=== PATIENT | male | born 1955 | race Caucasian/White ===

== ENCOUNTER 2020-04-28 17:24 | Emergency (ER) | payer MEDICARE, BC, MEDICAID ==
[~2020-04-28] VITALS: Ht 188 cm; Wt 125.0 kg
[~2020-04-28 17:24] MED LIST: ATEN25TA PO; HYDR-3972 PO; METF500T PO; OMEP40CA13 PO; TADA5TAB2 PO
[2020-04-28] MEDS ORDERED: HYDROmorphone 1 mg/ml syringe IV ONE ×2 (20:50→20:55)
[2020-04-28] MEDS ORDERED: gabapentin 400mg capsule PO SCH (20:50)
[2020-04-28] MEDS ORDERED: HYDROmorphone 1 mg/ml syringe IM ONE ×2 (21:05→21:10)
[2020-04-28] MEDS ORDERED: GABA-534 PO (21:57)
[2020-04-28 22:06] VITALS: BP 131/86
== END 2020-04-28 22:07 | disposition home or self-care (01) ==
LOC: ER 17:25
DX: G89.18 Other acute postprocedural pain (principal); I25.10 Atherosclerotic heart disease of native coronary artery without angina pectoris; I10 Essential (primary) hypertension; J44.9 Chronic obstructive pulmonary disease, unspecified; K21.9 Gastro-esophageal reflux disease without esophagitis; E11.9 Type 2 diabetes mellitus without complications; G89.29 Other chronic pain; Z98.890 Other specified postprocedural states; Z60.2 Problems related to living alone; Z88.5 Allergy status to narcotic agent; Z79.899 Other long term (current) drug therapy
CPT/HCPCS: 96372; 99283; J1170

== ENCOUNTER 2021-01-22 09:22 | Outpatient (CLI) | payer MEDICARE, BC, MEDICAID ==
[~2021-01-22 09:22] MED LIST changes: +GABA-534 PO; -OMEP40CA13 PO; +OMEP40CA21 PO
[2021-01-22] MEDS ORDERED: iohexol 300mg/ml 100ml inj. ONE (10:19)
== END 2021-01-22 23:59 | disposition home or self-care (01) ==
LOC: 64 CT 09:22
PROVIDERS: ATTEND Nurse Practitioner Adult Health
DX: R51.9 Headache, unspecified (principal)
CPT/HCPCS: 70470; Q9967

== ENCOUNTER 2021-08-20 09:46 | Outpatient (CLI) | payer MEDICARE, BC, MEDICAID | END 2021-08-20 23:59 | disposition home or self-care (01) | LOC: RAD 09:46 | PROVIDERS: ATTEND Nurse Practitioner Adult Health | DX: E04.2 Nontoxic multinodular goiter (principal) | CPT/HCPCS: 76536 ==

== ENCOUNTER 2022-01-20 01:18 | Emergency (ER) | payer MEDICARE, BC ==
[~2022-01-20] VITALS: Ht 188 cm; Wt 123.6 kg
[2022-01-20 03:21] LABS: BASOPHILS # (AUTO) 0.1 X10'3 (0-0.2); EOSINOPHILS # (AUTO) 0.1 X10'3 (0-0.9); EOSINOPHILS % (AUTO) 0.7 % (0-6); HEMATOCRIT 46.2 % (42.0-52.0); HEMOGLOBIN 15.9 g/dl (14.0-17.9); LYMPHOCYTES # (AUTO) 2.1 X10'3 (1.1-4.8); LYMPHOCYTES % (AUTO) 22.2 % (21-51); MEAN CORPUSCULAR HEMOGLOBIN 31.2 PG (27.0-31.0); MEAN CORPUSCULAR HGB CONC 34.3 g/dL (33.0-36.5); MEAN CORPUSCULAR VOLUME 90.8 FL (78-98); MEAN PLATELET VOLUME 7.9 FL (7.4-10.4); MONOCYTES # (AUTO) 1.1 X10'3 (0-0.9); MONOCYTES % (AUTO) 12.2 % (2-12); NEUTROPHILS # (AUTO) 5.9 X10'3 (1.8-7.7); NEUTROPHILS % (AUTO) 63.9 % (42-75); PLATELET COUNT 218 X10'3 (140-440); RED BLOOD COUNT 5.09 X10'6 (4.70-6.10); RED CELL DISTRIBUTION WIDTH 13.4 % (11.5-14.5); WHITE BLOOD COUNT 9.3 X10'3 (4.5-11.0)
[2022-01-20 03:54] LABS: ALANINE AMINOTRANSFERASE 35 U/L (12-78); ALBUMIN 3.7 G/DL (3.4-5.0); ALBUMIN/GLOBULIN RATIO 1.1 (1.1-1.5); ALKALINE PHOSPHATASE 83 IU/L (46-116); ANION GAP 10 (8-16); ASPARTATE AMINO TRANSFERASE 21 U/L (10-37); BILIRUBIN,TOTAL 0.4 MG/DL (0.1-1.0); BLOOD UREA NITROGEN 14 MG/DL (7-18); BUN/CREATININE RATIO 13.7 (5.4-32.0); CALCIUM 8.8 MG/DL (8.5-10.1); CHLORIDE 105 MMOL/L (99-107); CREATININE 1.02 MG/DL (0.60-1.10); GLUCOSE 148 MG/DL (70-104); POTASSIUM 4.3 MMOL/L (3.5-5.1); SODIUM 141 MMOL/L (135-145); TOTAL CARBON DIOXIDE 25.8 MMOL/L (24-32); TOTAL PROTEIN 7.1 G/DL (6.4-8.2); eGFR 73 ML/MIN
[2022-01-20] MEDS ORDERED: meclizine 12.5mg tablet PO ONE (05:30)
[2022-01-20] MEDS ORDERED: MECL-159 PO (05:41)
[2022-01-20 06:03] VITALS: BP 130/81
== END 2022-01-20 06:08 | disposition home or self-care (01) ==
LOC: ER 01:19
DX: R42 Dizziness and giddiness (principal); R00.2 Palpitations; R07.89 Other chest pain; I25.10 Atherosclerotic heart disease of native coronary artery without angina pectoris; I10 Essential (primary) hypertension; J43.9 Emphysema, unspecified; K21.9 Gastro-esophageal reflux disease without esophagitis; E11.9 Type 2 diabetes mellitus without complications; G89.29 Other chronic pain; Z60.2 Problems related to living alone; Z88.5 Allergy status to narcotic agent; Z88.6 Allergy status to analgesic agent; Z79.899 Other long term (current) drug therapy
CPT/HCPCS: 36415; 71045; 80053; 83880; 84484; 85025; 93005; 99285; J8597

== ENCOUNTER 2022-06-05 06:44 | Day surgery (SDC) | payer MEDICARE, BC ==
[2022-06-04 14:02] LABS: ALBUMIN 3.8 G/DL (3.4-5.0); ANION GAP 8 (8-16); BLOOD UREA NITROGEN 16 MG/DL (7-18); CALCIUM 9.1 MG/DL (8.5-10.1); CHLORIDE 103 MMOL/L (99-107); CREATININE 1.07 MG/DL (0.60-1.10); GLUCOSE 170 MG/DL (70-104); POTASSIUM 4.8 MMOL/L (3.5-5.1); SODIUM 141 MMOL/L (135-145); TOTAL CARBON DIOXIDE 30.3 MMOL/L (24-32); eGFR 69 ML/MIN
[2022-06-04 14:20] LABS: BASOPHILS # (AUTO) 0.1 X10'3 (0-0.2); BASOPHILS % (AUTO) 0.9 % (0-1); EOSINOPHILS # (AUTO) 0.1 X10'3 (0-0.9); EOSINOPHILS % (AUTO) 1.6 % (0-6); HEMATOCRIT 45.7 % (42.0-52.0); HEMOGLOBIN 15.5 g/dl (14.0-17.9); LYMPHOCYTES # (AUTO) 1.8 X10'3 (1.1-4.8); LYMPHOCYTES % (AUTO) 20.5 % (21-51); MEAN CORPUSCULAR HEMOGLOBIN 31.2 PG (27.0-31.0); MEAN CORPUSCULAR HGB CONC 33.9 g/dL (33.0-36.5); MEAN PLATELET VOLUME 7.4 FL (7.4-10.4); MONOCYTES # (AUTO) 0.8 X10'3 (0-0.9); MONOCYTES % (AUTO) 9.4 % (2-12); NEUTROPHILS # (AUTO) 5.8 X10'3 (1.8-7.7); NEUTROPHILS % (AUTO) 67.6 % (42-75); PLATELET COUNT 238 X10'3 (140-440); RED BLOOD COUNT 4.97 X10'6 (4.70-6.10); RED CELL DISTRIBUTION WIDTH 13.1 % (11.5-14.5); WHITE BLOOD COUNT 8.6 X10'3 (4.5-11.0)
[~2022-06-05] VITALS: Ht 188 cm; Wt 124.9 kg
[2022-06-05] VITALS (13 sets, daily range): BP systolic 122–159; BP diastolic 68–92
[~2022-06-05 06:44] MED LIST changes: -ATEN25TA PO; +ATEN50TA90 PO; -GABA-534 PO; -OMEP40CA21 PO; -TADA5TAB2 PO
[2022-06-05] MEDS ORDERED: METO25TA6 PO (07:21)
[2022-06-05] MEDS ORDERED: LISI5TAB22 PO (07:26)
[2022-06-05] MEDS ORDERED: METF-438 PO (07:27)
[2022-06-05] MEDS ORDERED: TADA5TAB13 PO (07:29)
[2022-06-05] MEDS ORDERED: TIZA-189 PO (07:32)
[2022-06-05] MEDS ORDERED: LORA10CA PO (07:32)
[2022-06-05] MEDS ORDERED: normal saline 1,000 ML IV SCH (07:35)
[2022-06-05] MEDS ORDERED: LORazepam 0.5 MG tablet PO PRN (07:35)
[2022-06-05] MEDS ORDERED: diphenhydrAMINE 25mg capsule PO PRN (07:35)
[2022-06-05] MEDS ORDERED: heparin 1,000unit/ml 10ml vial 10 ML ONE (07:36)
[2022-06-05] MEDS ORDERED: LIDOcaine 1% (10mg/ml) 2ml vial ONE (07:36)
[2022-06-05] MEDS ORDERED: fentaNYL/PF 50MCG/1 ML 2ML syringe ONE (07:36)
[2022-06-05] MEDS ORDERED: verapamil 2.5 mg/ml inj IV ONE (07:36)
[2022-06-05] MEDS ORDERED: nitroGLYCERIN-Tridil 50MG/D5W 250 ML IV ONE (07:36)
[2022-06-05] MEDS ORDERED: midazolam 1 mg/ML 2ml injection ONE (07:36)
[2022-06-05] MEDS ORDERED: iohexol 350MG/ML 100ml bottle IV ONE (07:36)
[2022-06-05] MEDS ORDERED: LIDOcaine 1% 30ml preserv. free vial ONE (08:29)
[2022-06-05] MEDS ORDERED: iohexol 350 MG/ML 50ML vial IV ONE (08:53)
[2022-06-05] MEDS ORDERED: normal saline 1000ml 1,000 ML IV SCH (09:55)
[2022-06-05] MEDS ORDERED: non-formulary drug (Tadalafil 1 TAB) PO SCH (12:05)
[2022-06-05] MEDS ORDERED: HYDROcodone/acetaminophen 10/325mg tab PO SCH (12:09)
[2022-06-05] MEDS ORDERED: TIZANIDINE HCL PO SCH (13:00)
[2022-06-06] MEDS ORDERED: lisinopril 5mg tablet PO SCH (08:00)
[2022-06-06] MEDS ORDERED: metoprolol tartrate 25mg tablet PO SCH (08:00)
[2022-06-06] MEDS ORDERED: loratadine 10mg tablet PO SCH (08:00)
[2022-06-06 09:05] LABS: ISTAT HGB ART 14.3 g/dl (14.0-17.9); ISTAT Hct ART 42 %PCV (42-52); ISTAT O2 SATURATION ARTERIAL 98 % (95-98); ISTAT SOURCE ART
[2022-06-06 09:06] LABS: ISTAT Hct MIX 43 %PCV (42-52); ISTAT O2 SATURATION MIX VENOUS 65 % (60-80); ISTAT SOURCE BLNK
[2022-06-07] MEDS ORDERED: metFORMIN 500mg tablet PO SCH (09:00)
== END 2022-06-05 14:00 | disposition home or self-care (01) ==
LOC: SSTAY O 06:44
PROVIDERS: ATTEND Internal Medicine Cardiovascular Disease
DX: I25.10 Atherosclerotic heart disease of native coronary artery without angina pectoris (principal); I26.99 Other pulmonary embolism without acute cor pulmonale; E78.5 Hyperlipidemia, unspecified; E11.9 Type 2 diabetes mellitus without complications; F17.210 Nicotine dependence, cigarettes, uncomplicated; K21.9 Gastro-esophageal reflux disease without esophagitis; I87.2 Venous insufficiency (chronic) (peripheral); Z79.899 Other long term (current) drug therapy; Z88.8 Allergy status to other drugs, medicaments and biological substances; Z95.0 Presence of cardiac pacemaker
CPT/HCPCS: 36415; 76937; 80048; 82803; 82948; 85014; 85025; 85610; 93005; 93460; 99152; 99153; C1751; C1769; C1894; J1644; J2250; J3010; J3490; J7030; Q0163; Q9967; 93458; A4620; A6258; A6449

== ENCOUNTER 2022-07-18 09:53 | Day surgery (SDC) | payer MEDICARE, BC ==
[2022-07-17 11:16] LABS: BASOPHILS # (AUTO) 0.1 X10'3 (0-0.2); BASOPHILS % (AUTO) 0.7 % (0-1); EOSINOPHILS # (AUTO) 0.2 X10'3 (0-0.9); EOSINOPHILS % (AUTO) 2.3 % (0-6); HEMATOCRIT 46.4 % (42.0-52.0); HEMOGLOBIN 15.3 g/dl (14.0-17.9); LYMPHOCYTES # (AUTO) 1.8 X10'3 (1.1-4.8); LYMPHOCYTES % (AUTO) 22.7 % (21-51); MEAN CORPUSCULAR HEMOGLOBIN 30.7 PG (27.0-31.0); MEAN PLATELET VOLUME 7.5 FL (7.4-10.4); MONOCYTES # (AUTO) 0.9 X10'3 (0-0.9); MONOCYTES % (AUTO) 10.8 % (2-12); NEUTROPHILS % (AUTO) 63.5 % (42-75); PLATELET COUNT 222 X10'3 (140-440); RED BLOOD COUNT 4.99 X10'6 (4.70-6.10); RED CELL DISTRIBUTION WIDTH 13.1 % (11.5-14.5); WHITE BLOOD COUNT 7.9 X10'3 (4.5-11.0)
[2022-07-17 11:17] LABS: ALBUMIN 3.5 G/DL (3.4-5.0); BLOOD UREA NITROGEN 18 MG/DL (7-18); BUN/CREATININE RATIO 18.8 (5.4-32.0); CALCIUM 8.6 MG/DL (8.5-10.1); CHLORIDE 102 MMOL/L (99-107); CREATININE 0.96 MG/DL (0.60-1.10); GLUCOSE 190 MG/DL (70-104); POTASSIUM 4.3 MMOL/L (3.5-5.1); TOTAL CARBON DIOXIDE 27.8 MMOL/L (24-32); eGFR 78 ML/MIN
[2022-07-17 11:18] LABS: ANION GAP 7 (8-16); SODIUM 137 MMOL/L (135-145)
[2022-07-17 11:20] LABS: APTT 25 SECONDS (22-32)
[~2022-07-18] VITALS: Ht 188 cm; Wt 125.4 kg
[2022-07-18] VITALS (8 sets, daily range): BP systolic 119–151; BP diastolic 51–89
[~2022-07-18 09:53] MED LIST changes: -ATEN50TA90 PO; +LISI5TAB22 PO; +LORA10CA PO; +METF-438 PO; -METF500T PO; +METO25TA6 PO; +TADA5TAB13 PO; +TIZA-189 PO
[2022-07-18] MEDS ORDERED: cefazolin/dext.iso 2gm/100ml 100 ML IV ONE (10:20)
[2022-07-18] MEDS ORDERED: ceFAZolin inj. 3,000 MG in normal saline 100ml IV soln 100 ML IV ONE (10:21)
[2022-07-18] MEDS ORDERED: OMEP40CA21 PO (10:22)
[2022-07-18] MEDS ORDERED: OMEG-5 PO (10:23)
[2022-07-18] MEDS ORDERED: normal saline 1000ml 1,000 ML IV SCH (10:30)
[2022-07-18] MEDS ORDERED: midazolam 1 mg/ML 2ml injection ONE ×2 (11:51→13:04)
[2022-07-18] MEDS ORDERED: LIDOCAINE 1%/EPI 1:100,000 inj. 10 ML multi-dose vial ONE ×2 (11:51→13:15)
[2022-07-18] MEDS ORDERED: fentaNYL/PF 50MCG/1 ML 2ML syringe ONE ×2 (11:52→13:08)
[2022-07-18] MEDS ORDERED: ceFAZolin 1000mg inj ONE (11:52)
[2022-07-18] MEDS ORDERED: HYDROcodone/acetaminophen 5mg/325mg tablet PO PRN (14:15)
[2022-07-18] MEDS ORDERED: HYDROcodone/acetaminophen 10/325mg tab PO PRN (14:15)
[2022-07-18] MEDS ORDERED: vancomycin/NS 1 GM ADD-VANTAGE 250 ML X 1 DOSE IV ONE (14:30)
== END 2022-07-18 17:00 | disposition home or self-care (01) ==
LOC: SSTAY O 09:53
PROVIDERS: ATTEND Internal Medicine Cardiovascular Disease
DX: Z45.010 Encounter for checking and testing of cardiac pacemaker pulse generator [battery] (principal); Z79.01 Long term (current) use of anticoagulants; I25.10 Atherosclerotic heart disease of native coronary artery without angina pectoris; E78.5 Hyperlipidemia, unspecified; I10 Essential (primary) hypertension; E11.9 Type 2 diabetes mellitus without complications; K21.9 Gastro-esophageal reflux disease without esophagitis; Z98.890 Other specified postprocedural states; Z79.899 Other long term (current) drug therapy; I26.99 Other pulmonary embolism without acute cor pulmonale
CPT/HCPCS: 33228; 36415; 80048; 85025; 85610; 85730; 93005; 99152; 99153; C1785; J0690; J2250; J3010; J3370; J3490; J7030

== ENCOUNTER 2022-09-23 08:27 | Outpatient (CLI) | payer MEDICARE, BC ==
[~2022-09-23 08:27] MED LIST changes: +OMEG-5 PO; +OMEP40CA21 PO; -TADA5TAB13 PO
== END 2022-09-23 23:59 | disposition home or self-care (01) ==
LOC: RAD 08:27
PROVIDERS: ATTEND Otolaryngology
DX: E04.2 Nontoxic multinodular goiter (principal)
CPT/HCPCS: 76536

== ENCOUNTER 2024-02-26 22:04 | Emergency (ER) | payer MEDICARE, BC ==
[~2024-02-26] VITALS: Ht 188 cm; Wt 121.8 kg
[2024-02-26 22:57] LABS: BILIRUBIN,URINE NEGATIVE (Neg); CLARITY,URINE CLEAR (Clear); COLOR,URINE YELLOW (Yellow); GLUCOSE, URINE NEGATIVE (Neg); KETONES,URINE NEGATIVE (Neg); LEUKOCYTE ESTERASE ,URINE NEGATIVE (Neg); NITRITES, URINE NEGATIVE (Neg); OCCULT BLOOD,URINE TRACE-INTACT (Neg); PROTEIN,URINE NEGATIVE (Neg); UA COLLECTION TYPE CLN CATCH MIDSTREAM; UROBILINOGEN,URINE 0.2 E.U/dL (0.2-1.0)
[2024-02-26 23:03] LABS: WBC,URINE 0-4 /HPF (0-4)
[2024-02-26 23:04] LABS: BACTERIA,URINE FEW /HPF (Neg); MUCUS STRANDS NONE SEEN /LPF (Neg); SQUAMOUS EPITHELIAL CELL,UR MODERATE /LPF (FEW)
[2024-02-26 23:16] LABS: BASOPHILS # (AUTO) 0.1 X10'3 (0-0.2); BASOPHILS % (AUTO) 0.6 % (0-1); EOSINOPHILS # (AUTO) 0.2 X10'3 (0-0.9); EOSINOPHILS % (AUTO) 1.2 % (0-6); HEMATOCRIT 45.9 % (42.0-52.0); HEMOGLOBIN 15.4 g/dl (14.0-17.9); LYMPHOCYTES # (AUTO) 1.9 X10'3 (1.1-4.8); LYMPHOCYTES % (AUTO) 14.6 % (21-51); MEAN CORPUSCULAR HEMOGLOBIN 32.3 PG (27.0-31.0); MEAN CORPUSCULAR HGB CONC 33.5 g/dL (33.0-36.5); MEAN CORPUSCULAR VOLUME 96.5 FL (78-98); MONOCYTES # (AUTO) 1.3 X10'3 (0-0.9); MONOCYTES % (AUTO) 10.3 % (2-12); NEUTROPHILS # (AUTO) 9.5 X10'3 (1.8-7.7); NEUTROPHILS % (AUTO) 73.3 % (42-75); PLATELET COUNT 237 X10'3 (140-440); RED BLOOD COUNT 4.76 X10'6 (4.70-6.10); RED CELL DISTRIBUTION WIDTH 14.2 % (11.5-14.5); WHITE BLOOD COUNT 12.9 X10'3 (4.5-11.0)
[2024-02-26 23:23] LABS: APTT 25 SECONDS (22-32); PROTHROMBIN TIME 10.2 SECONDS (9.0-12.0)
[2024-02-26 23:26] LABS: ALANINE AMINOTRANSFERASE 39 U/L (12-78); ALKALINE PHOSPHATASE 53 IU/L (46-116); ANION GAP 7 (8-16); ASPARTATE AMINO TRANSFERASE 15 U/L (10-37); BILIRUBIN,TOTAL 0.5 MG/DL (0.1-1.0); BLOOD UREA NITROGEN 23 MG/DL (7-18); CALCIUM 9.3 MG/DL (8.5-10.1); CHLORIDE 104 MMOL/L (99-107); CREATININE 1.21 MG/DL (0.60-1.10); GLUCOSE 140 MG/DL (70-104); LIPASE 50 U/L (16-77); POTASSIUM 4.4 MMOL/L (3.5-5.1); SODIUM 137 MMOL/L (135-145); TOTAL CARBON DIOXIDE 25.6 MMOL/L (24-32); TOTAL PROTEIN 7.9 G/DL (6.4-8.2); eCRCL 68 ML/MIN; eGFR 60 ML/MIN
[2024-02-27] MEDS: methylnaltrexone br 12mg/0.6ml inj***SubQ only SQ ONE (00:04)
[2024-02-27] MEDS ORDERED: NALO25TA4 PO (00:17)
[2024-02-27 00:23] VITALS: BP 126/73; PULSE 83; RESP 14; TEMP 98.5; O2SAT 93
== END 2024-02-27 00:27 | disposition home or self-care (01) ==
LOC: ER 22:05
DX: R10.33 Periumbilical pain (principal); Z88.8 Allergy status to other drugs, medicaments and biological substances; Z79.899 Other long term (current) drug therapy; Z79.84 Long term (current) use of oral hypoglycemic drugs; I25.10 Atherosclerotic heart disease of native coronary artery without angina pectoris; I10 Essential (primary) hypertension; J44.9 Chronic obstructive pulmonary disease, unspecified; K21.9 Gastro-esophageal reflux disease without esophagitis; E11.9 Type 2 diabetes mellitus without complications; G89.29 Other chronic pain; M54.9 Dorsalgia, unspecified
CPT/HCPCS: 36415; 74176; 80053; 81001; 83605; 83690; 85025; 85610; 85730; 87040; 96372; 99285; J2212